=== PATIENT | female | born 1995 | race Caucasian/White ===

== ENCOUNTER 2019-09-29 11:58 | Emergency (ER) | payer OTHER, SELFPAY ==
[2019-09-29 12:13] VITALS: BP 109/68; PULSE 89; RESP 18; TEMP 37.3; O2SAT 99
--- NOTE | 2019-09-29 12:33 | ED.GENADULT ---
HPI - General Adult General Chief complaint: Upper Respiratory Infection Stated complaint: sore throat fever Time Seen by Provider: 09/29/19 12:33 Source: patient Mode of arrival: ambulatory Limitations: no limitations History of Present Illness HPI narrative: 23-year-old female patient presents to the [facility] with complaints of cold symptoms for the past week. Patient states she has had a sore throat, fevers, chills, body aches and a cough that got worse last night when she tried to lay down. Patient states she has been taking Tylenol for her symptoms. Patient states she was seen in the ER about 3 days ago was tested for influenza and strep at that time and states that she came back negative. Patient denies being an active smoker. Patient denies getting a flu shot this year. Related Data Home Medications Medication Instructions Recorded Confirmed albuterol sulfate 2 puff INHALATION QID PRN 09/29/19 09/29/19 Allergies Allergy/AdvReac Type Severity Reaction Status Date / Time NSAIDS (Non-Steroidal Allergy Hives Verified 09/29/19 12:40 Anti-Inflamma Review of Systems Review of Systems: Narrative: CONSTITUTIONAL: Positive fever, chills, body exam sweats. EYES: Denies visual changes, redness, or discharge. ENT: Positive rhinorrhea, congestion, sore throat, denies otalgia. CARDIOVASCULAR: Denies chest pain, palpitations, or edema. RESPIRATORY: Positive cough, denies dyspnea. GASTROINTESTINAL: Denies abdominal pain, nausea, vomiting, or diarrhea. GENITOURINARY: Denies dysuria or hematuria. SKIN: Denies rash or itching. MUSCULOSKELETAL: Denies back pain, joint pain, or myalgia. NEUROLOGIC: Denies headache, numbness, or weakness. PSYCHIATRIC: Denies anxiety or depression. PMFSH Comments At the time of my signature I agree with nursing past medical history, surgical, social, and family history. There is no relevant family history pertinent to the presenting complaint. Exam Narrative: Exam Narrative: GENERAL: ill-appearing, well-nourished, and in no acute distress. HEAD: Normocephalic, atraumatic. No tenderness noted to frontal maxillary sinuses on palpation EYES: PERRLA and EOMI. ENT: Nares with erythema and edema noted bilaterally, no rhinorrhea or epistaxis. Mucous membranes moist. Posterior pharynx with some erythema and 1+ tonsil enlargement, no exudates or lesions present. Bilateral TMs are clear no erythema or foreign bodies in the canal. NECK: Supple. No lymphadenopathy CHEST: Clear to auscultation. No respiratory distress. HEART: Regular rate and rhythm. No murmur heard. Normal peripheral pulses. ABDOMEN: Soft, nontender, nondistended, normal active bowel sounds. EXTREMITIES: Normal range of motion. No edema. SKIN: Warm, dry, no rash. NEURO: No focal deficits. Alert and oriented x3. Course Reevaluation(s) Reevaluation #1: Notify patient that she is positive today for influenza A but negative for strep. Discussed with her that since her symptoms have been going on now for a week she is outside of the time for antivirals. Discussed with patient she can continue taking Tylenol, ibuprofen and [id number] medications to help with her symptoms and that this should start to improve however if she develops worsening symptoms such as chest pain, shortness of breath or any other concerning symptoms she would need to go the ER for further evaluation and treatment. Patient verbalized understanding denies any other questions or concerns at this time. Date: 09/29/19 Time: 12:58 Vital Signs Vital signs: Vital Signs Temperature 37.3 C 09/29/19 12:13 Pulse Rate 89 09/29/19 12:13 Respiratory Rate 18 09/29/19 12:13 Blood Pressure 109/68 09/29/19 12:13 Pulse Oximetry 99 09/29/19 12:13 Temperature 37.3 C 09/29/19 12:13 Pulse Rate 89 09/29/19 12:13 Respiratory Rate 18 09/29/19 12:13 Blood Pressure 109/68 09/29/19 12:13 Pulse Oximetry 99 09/29/19 12:13 Vital signs reviewed.
== END 2019-09-29 13:24 | disposition home or self-care (01) ==
PROVIDERS: Emergency Provider Nurse Practitioner Family
DX: J10.1 Influenza due to other identified influenza virus with other respiratory manifestations (principal); J45.909 Unspecified asthma, uncomplicated
CPT/HCPCS: 87081; 87804; 87880; 99213; G0463

== ENCOUNTER 2021-03-08 18:06 | Emergency (ER) | payer OTHER, SELFPAY ==
[2021-03-08 18:13] VITALS: BP 111/63; PULSE 92; RESP 18; TEMP 36.8; O2SAT 100
--- NOTE | 2021-03-08 18:18 | ED.EAR ---
HPI - Ear Problem General Chief complaint: Ear Stated complaint: ear pain Time Seen by Provider: 03/08/21 18:15 Source: patient and RN notes reviewed Mode of arrival: ambulatory Limitations: no limitations History of Present Illness HPI Narrative: 25-year-old female presents with concern for left ear pain. Reports pain started today. Reports over the last 2 weeks she has had nasal congestion. Reports history of ear infections when she gets upper respiratory infection. She denies fever, cough, shortness of breath, body aches, chills, sweats, nausea, vomiting, drainage from the ear. Denies intervention. MD Complaint: ear pain Related Data Allergies Allergy/AdvReac Type Severity Reaction Status Date / Time NSAIDS (Non-Steroidal Allergy Hives Verified 03/08/21 18:16 Anti-Inflamma Review of Systems Review of Systems: CONSTITUTIONAL: Denies malaise, chills, sweats, or fever. EYES: Denies visual changes, redness, or discharge. ENT: Reports rhinorrhea, congestion, left ear pain. Denies sinus pain and sore throat. CARDIOVASCULAR: Denies chest pain, palpitations, or edema. RESPIRATORY: Denies cough or dyspnea. GASTROINTESTINAL: Denies abdominal pain, nausea, vomiting, diarrhea SKIN: Denies rash or itching. MUSCULOSKELETAL: Denies myalgia. NEUROLOGIC: Denies headache. All systems reviewed & are unremarkable except as noted in HPI and below PMFSH Comments At time of signature, agree with nursing past medical, surgical, social and family history. There is no relevant family history pertinent to the presenting complaint Exam Narrative: GENERAL: Well-appearing, well-nourished, and in no acute distress. HEAD: Normocephalic EYES: PERRLA, conjunctivae clear ENT: Nares clear, turbinates erythematous, clear discharge. Mucous membranes moist. Right TM pearly alexander with dull light reflex, left TM erythematous and bulging; no tragal tenderness. Oropharynx not erythematous without lesions. Tonsils not enlarged and without exudate, no drooling, no hoarseness, no trismus, uvula midline. NECK: Supple. No lymphadenopathy CHEST: Clear to auscultation, breath sounds equal. No wheezing, rhonchi, rales, or stridor. No respiratory distress, speaks in full sentences. HEART: Regular rate and rhythm. No murmur heard. SKIN: Warm, dry, no rash. NEURO: Alert and oriented x3. PSYCH: Normal mood and affect Course Course Emergency Course: Patient is aware of diagnosis, understands and agrees to treatment plan. Anticipatory guidance given. Patient agrees to follow-up as directed and is aware of reasons to seek care at the emergency department. Portions of this record may have been created with voice recognition software Vital Signs Vital signs: Vital Signs Temperature 98.2 F 03/08/21 18:13 Pulse Rate 92 03/08/21 18:13 Respiratory Rate 18 03/08/21 18:13 Blood Pressure 111/63 03/08/21 18:13 Pulse Oximetry 100 03/08/21 18:13 Temperature 98.2 F 03/08/21 18:13 Pulse Rate 92 03/08/21 18:13 Respiratory Rate 18 03/08/21 18:13 Blood Pressure 111/63 03/08/21 18:13 Pulse Oximetry 100 03/08/21 18:13 Reviewed. Medical Decision Making MDM Narrative Medical decision making narrative: Differential diagnosis considered: Dean virus, strep pharyngitis, allergic rhinitis, upper respiratory tract infection, sinusitis, rhinosinusitis, nasopharyngitis. viral pharyngitis, otitis media, otitis externa, pneumonia, bronchitis, viral cough syndrome, viral syndrome, and influenza. Exam findings show no acute concerns or changes; patient is non-toxic appearing and is in no distress. Patient is appropriate for outpatient treatment and follow-up. Vital Signs Vital Signs: Vital Signs Temperature 98.2 F 03/08/21 18:13 Pulse Rate 92 03/08/21 18:13 Respiratory Rate 18 03/08/21 18:13 Blood Pressure 111/63 03/08/21 18:13 Pulse Oximetry 100 03/08/21 18:13 Temperature 98.2 F 03/08/21 18:13 Pulse Rate 92 03/08/21 18:13
== END 2021-03-08 18:26 | disposition home or self-care (01) ==
PROVIDERS: Emergency Provider Nurse Practitioner; PCP Nurse Practitioner Family
DX: H66.002 Acute suppurative otitis media without spontaneous rupture of ear drum, left ear (principal)
CPT/HCPCS: 99213; G0463

== ENCOUNTER 2022-11-10 18:30 | Emergency (ER) | payer OTHER, SELFPAY ==
[2022-11-10 18:42] VITALS: BP 147/67; PULSE 83; RESP 20; TEMP 37.6; O2SAT 100
--- NOTE | 2022-11-10 19:47 | ED.GENADULT ---
HPI - General Adult General Chief complaint: Upper Respiratory Infection Stated complaint: Sinus Congestion/Cough Source: patient Mode of arrival: ambulatory Limitations: no limitations History of Present Illness HPI narrative: PATIENT PRESENTS FOR EVALUATION OF SICK SYMPTOMS FOR LAST 3 DAYS. SYMPTOMS INCLUDE SINUS CONGESTION, POSTNASAL DRAINAGE, COUGH, STERNAL CHEST TIGHTNESS, SORE THROAT, SWEATS AND CHILLS. NO OBJECTIVE FEVER, NAUSEA, VOMITING, DIARRHEA. ONE OF HER FRIENDS RECENTLY TESTED POSITIVE FOR STREP AND SHE WAS ALSO EXPOSED TO SOMEONE PNEUMONIA. SHE SMOKES CIGARETTES OCCASIONALLY BUT IS TRYING TO QUIT. SHE HAS AN ALBUTEROL INHALER AT HOME. SHE DOES NOT FEEL THOUGH HER ASTHMA HAS BEEN BOTHERSOME OF LATE. Related Data Allergies Allergy/AdvReac Type Severity Reaction Status Date / Time NSAIDS (Non-Steroidal Allergy Intermediate Hives Verified 11/10/22 19:47 Anti-Inflamma Review of Systems Review of Systems: CONSTITUTIONAL: REPORTS CHILLS AND SWEATS. DENIES FEVER. EYES: DENIES VISUAL CHANGES, REDNESS, OR DISCHARGE. ENT: REPORTS SINUS CONGESTION, POSTNASAL DRAINAGE, SORE THROAT. CARDIOVASCULAR: REPORTS STERNAL CHEST TIGHTNESS. DENIES CHEST PAIN PER SE. DENIES PALPITATIONS, OR EDEMA. RESPIRATORY: REPORTS COUGH. DENIES SHORTNESS OF BREATH. GASTROINTESTINAL: DENIES ABDOMINAL PAIN, NAUSEA, VOMITING, OR DIARRHEA. GENITOURINARY: DENIES DYSURIA OR HEMATURIA. SKIN: DENIES RASH OR ITCHING. MUSCULOSKELETAL: DENIES BACK PAIN, JOINT PAIN, OR MYALGIA. NEUROLOGIC: DENIES HEADACHE, NUMBNESS, DIZZINESS, OR WEAKNESS. PSYCHIATRIC: DENIES ANXIETY OR DEPRESSION. PMFSH Past Medical History Medical History Asthma Surgical History Surgical History No pertinent past surgical history Family History Family History Mother Family history non-contributory Social History Social History Smoking status: Current some day smoker Tobacco type: cigarettes Living arrangements: with friend(s) Spiritual care concerns: No Exam Narrative: GENERAL: WELL-APPEARING, WELL-NOURISHED, AND IN NO ACUTE DISTRESS. HEAD: NORMOCEPHALIC, ATRAUMATIC. EYES: PERRLA AND EOMI. ENT: NARES CLEAR, NO RHINORRHEA OR EPISTAXIS. MUCOUS MEMBRANES MOIST. BILATERAL TONSILLAR SWELLING AND ERYTHEMA. NO EXUDATE. UVULA IS MIDLINE. bILATERAL TMS PEARLY MARIANO NONBULGING NECK: SUPPLE. NO ADENOPATHY OR MASSES. NO CAROTID BRUITS OR JVD CHEST: CLEAR TO AUSCULTATION. NO RESPIRATORY DISTRESS. NO WHEEZES RALES OR RHONCHI HEART: REGULAR RATE AND RHYTHM. NO MURMUR HEARD. NORMAL PERIPHERAL PULSES. ABDOMEN: SOFT, NONTENDER, NONDISTENDED, NORMAL ACTIVE BOWEL SOUNDS. EXTREMITIES: NORMAL RANGE OF MOTION. NO EDEMA. SKIN: WARM, DRY, NO RASH. NEURO: NO FOCAL DEFICITS. ALERT AND ORIENTED X3. PSYCH: NORMAL MOOD AND AFFECT. Course Course Emergency Course: THIS IS A 26-YEAR-OLD FEMALE WHO PRESENTED FOR EVALUATION OF SICK SYMPTOMS WITH AN UNDERLYING HISTORY OF ASTHMA AFTER RECENT EXPOSURE TO STREP PHARYNGITIS PNEUMONIA. STREP. NEGATIVE. WILL TREAT WITH AUGMENTIN DUE TO EXPOSURE. WILL ALSO DISCHARGE WITH PREDNISONE. SHE HAS ALBUTEROL HOME. INCREASE HYDRATION. [id number] AGENTS FOR SYMPTOM MANAGEMENT. FOLLOW UP WITH PRIMARY THIS WEEK. GO TO THE ER FOR WORSENING SYMPTOMS. PATIENT IN AGREEMENT PLAN OF CARE Level of Care: Express Care Visit Vital Signs Vital signs: Vital Signs Temperature 37.6 C 11/10/22 18:42 Pulse Rate 83 11/10/22 18:42 Respiratory Rate 20 11/10/22 18:42 Blood Pressure 147/67 H 11/10/22 18:42 Pulse Oximetry 100 11/10/22 18:42 Oxygen Delivery Room Air 11/10/22 18:42 Temperature 37.6 C 11/10/22 18:42 Pulse Rate 83 11/10/22 18:42 Respiratory Rate 20 11/10/22 18:42
== END 2022-11-10 19:50 | disposition home or self-care (01) ==
PROVIDERS: Emergency Provider Nurse Practitioner; PCP Family Medicine
DX: J02.9 Acute pharyngitis, unspecified (principal); Z20.818 Contact with and (suspected) exposure to other bacterial communicable diseases; J45.909 Unspecified asthma, uncomplicated
CPT/HCPCS: 87081; 87880; 99213; G0463